=== PATIENT | male | born 1940 | race Caucasian/White ===

== ENCOUNTER 2024-10-25 17:09 | Inpatient (IN) ==
[2024-10-25 18:16] LABS: Basophils # (Auto) 0.05 K/mcL (0.00-0.30); Basophils % (Auto) 0.5 % (0.0-2.0); Eosinophils % (Auto) 4.4 % (0.0-7.0); Hemoglobin 10.9 g/dL (13.7-17.5); Lymphocytes # (Auto) 1.78 K/mcL (1.50-4.80); Lymphocytes % (Auto) 19.4 % (15.5-49.0); Mean Cell Volume 99.4 fL (80.0-100.0); Mean Corpuscular HGB Conc 32.1 g/dL (31.0-36.0); Mean Platelet Volume 11.4 fL (8.8-12.5); Neutrophils % (Auto) 63.5 % (38.0-78.0); Platelet Count 216 K/mcL (140-440); RBC 3.42 M/mcL (4.63-6.08); Red Cell Distribution Width 13.4 % (11.5-14.5); WBC 9.2 K/mcL (4.5-11.0)
[2024-10-25 18:27] LABS: INR 2.5 (0.9-1.1)
[2024-10-25 18:39] LABS: ALT/SGPT 41 U/L (<40); AST/SGOT 26 U/L (<40); Albumin 3.5 gm/dL (3.2-5.2); Albumin/Globulin Ratio 1.4 (1.0-2.3); Alkaline Phosphatase 79 U/L (39-117); Bilirubin,Total 0.4 mg/dL (0.1-1.0); Blood Urea Nitrogen 18 mg/dL (8-23); Calcium 9.1 mg/dL (8.6-10.4); Carbon Dioxide 25 mmol/L (22-30); Chloride 106 mmol/L (96-108); Globulin 2.5 gm/dL (2.2-3.7); Glomerular Filtration Rate 60; Glucose 95 mg/dL (70-105); Potassium 4.3 mmol/L (3.3-5.1); Sodium 141 mmol/L (133-145); Thyroid Stimulating Hormone < 0.005 uIU/mL (0.27-5.01)
[2024-10-25 19:37] LABS: Free T4 (Free Thyroxine) 2.18 ng/dL (0.93-1.70)
[2024-10-25] MEDS ORDERED: IPRATROPIUM/ALBUTEROL 3 ML AMPUL.NEB NEB PRN (22:03)
[2024-10-25] MEDS ORDERED: POLYETHYLENE GLYCOL 3350 17 GM PACKET PO PRN (22:03)
[2024-10-25] MEDS ORDERED: ONDANSETRON 4 MG/2 ML VIAL IV PRN (22:03)
[2024-10-25] MEDS ORDERED: METOCLOPRAMIDE 10 MG/2 ML VIAL IV PRN (22:03)
[2024-10-25] MEDS ORDERED: POTASSIUM CHLORIDE 40 MEQ in DEXTROSE 5% IN WATER 500 ML IV PRN (22:03)
[2024-10-25] MEDS ORDERED: LABETALOL HCL 20 MG/4 ML VIAL IV PRN (22:03)
[2024-10-25] MEDS ORDERED: MAGNESIUM SULFATE 2 GM/50 ML BAG IV PRN (22:03)
[2024-10-25] MEDS ORDERED: SENNOSIDES 1 TABLET PO PRN (22:03)
[2024-10-25] MEDS ORDERED: POTASSIUM CHLORIDE 20 MEQ TABLET PO PRN ×2 (22:03)
[2024-10-25] MEDS ORDERED: ACETAMINOPHEN 325 MG TABLET PO PRN (22:03)
[2024-10-25] MEDS: 0.9 % SODIUM CHLORIDE 1,000 ML IV ONE (22:30)
[2024-10-26 03:46] LABS: Appearance,Urine HAZY (Clear); Bilirubin,Urine Negative (Negative); Color,Urine YELLOW; Glucose,Urine (UA) Negative (Negative); Ketones,Urine Negative (Negative); Leukocyte Esterase,Urine Negative /uL (Negative); Mucus,Urine FEW /hpf; Nitrate,Urine Negative (Negative); Protein,Urine Negative (Negative); Specific Gravity,Urine 1.015 (1.000-1.035); Urine Amorphous Crystals FEW /hpf; Urine Blood Negative (Negative); Urine RBC < 1 /hpf (0-3); Urine Squamous Epithelial Cell < 1 /hpf (0-4); Urine WBC 1 /hpf (0-4); Urobilinogen,Urine Negative
[2024-10-26 05:59] LABS: ALT/SGPT 38 U/L (<40); AST/SGOT 25 U/L (<40); Albumin 3.4 gm/dL (3.2-5.2); Albumin/Globulin Ratio 1.4 (1.0-2.3); Alkaline Phosphatase 79 U/L (39-117); Bilirubin,Direct < 0.2 mg/dL (0-0.3); Bilirubin,Total 0.3 mg/dL (0.1-1.0); Blood Urea Nitrogen 20 mg/dL (8-23); Calcium 9.1 mg/dL (8.6-10.4); Carbon Dioxide 27 mmol/L (22-30); Chloride 106 mmol/L (96-108); Globulin 2.5 gm/dL (2.2-3.7); Glomerular Filtration Rate 68; Glucose 90 mg/dL (70-105); Lactate Dehydrogenase 190 U/L (135-225); Phosphorous 3.8 mg/dL (2.5-4.5); Potassium 4.4 mmol/L (3.3-5.1); Sodium 140 mmol/L (133-145); Triglycerides 47 mg/dL (<150); Uric Acid 8.3 mg/dL (2.5-8.0)
[2024-10-26] MEDS: MEMANTINE 10 MG TABLET PO SCH (08:42)
[2024-10-26] MEDS: LOSARTAN 25 MG TABLET PO SCH (08:42)
[2024-10-26] MEDS: ALLOPURINOL 300 MG TABLET PO SCH (08:42)
[2024-10-26] MEDS: RIVAROXABAN 20 MG TABLET PO SCH (08:43)
[2024-10-26] MEDS: METHIMAZOLE 5 MG TABLET PO SCH (08:47)
[2024-10-26] MEDS: DOCUSATE SODIUM 100 MG CAPSULE PO SCH (08:47)
[2024-10-26] MEDS: ESCITALOPRAM 10 MG TABLET PO SCH (08:50)
[2024-10-26] MEDS: AMIODARONE HCL 200 MG TABLET PO SCH (08:50)
[2024-10-27 06:13] LABS: ALT/SGPT 37 U/L (<40); AST/SGOT 24 U/L (<40); Albumin 3.5 gm/dL (3.2-5.2); Albumin/Globulin Ratio 1.5 (1.0-2.3); Alkaline Phosphatase 81 U/L (39-117); Bilirubin,Direct 0.2 mg/dL (<0.3); Bilirubin,Total 0.4 mg/dL (0.1-1.0); Blood Urea Nitrogen 18 mg/dL (8-23); Calcium 9.2 mg/dL (8.6-10.4); Carbon Dioxide 25 mmol/L (22-30); Chloride 106 mmol/L (96-108); Globulin 2.4 gm/dL (2.2-3.7); Glomerular Filtration Rate 81; Glucose 89 mg/dL (70-105); Lactate Dehydrogenase 163 U/L (135-225); Phosphorous 3.2 mg/dL (2.5-4.5); Potassium 4.2 mmol/L (3.3-5.1); Sodium 139 mmol/L (133-145); Triglycerides 51 mg/dL (<150); Uric Acid 7.4 mg/dL (2.5-8.0)
[2024-10-27 14:04] VITALS: TEMP 97.8; O2SAT 98
== END 2024-10-27 14:43 | disposition home or self-care (01) | DRG 312 ==
LOC: ED 17:09 → ICU 21:51
PROVIDERS: ADMIT Internal Medicine; ATTEND Internal Medicine